=== PATIENT | male | born 1970 | race Caucasian/White ===

== ENCOUNTER 2020-02-11 18:18 | Emergency (ER) | payer BC ==
[2020-02-11] MEDS ORDERED: TETANUS,DIPHTHERIA,PERTUSSIS 1 EA SYG IM ONE (18:33)
[2020-02-11] MEDS ORDERED: AMOXICILLIN & POT CLAVULANATE 875 MG TAB PO ONE (18:33)
[2020-02-11] MEDS ORDERED: LIDOCAINE 1% W/ EPINEPHRINE 20 ML VIAL INJ ONE (18:33)
--- NOTE | 2020-02-11 18:36 | ED.PDOC ---
History of Present Illness - General Chief Complaint: Laceration Stated Complaint: laceration to right thigh Time Seen by Provider: 02/11/20 18:29 Source: patient, family Exam Limitations: no limitations - History of Present Illness Initial Comments: Pt presents to ED with right thigh laceration from chain saw that occured 30 minutes [employer]. States he was cutting a tree limb and the limb fell and hit the chain saw and saw bounced into his leg. he was wearing blue jeans at the time. Has laceration to abnterior mid right thigh with no active bleeding. Denies other injuries. Unknown last tetanus. Allergies/Adverse Reactions: Allergies NO KNOWN ALLERGY Allergy (Verified 02/11/20 18:32) Home Medications: Ambulatory Orders Amoxicillin & Pot Clavulanate [Augmentin Tab] 875 mg PO BID #20 tab 02/11/20 Review of Systems - Review of Systems Constitutional: Denies: chills, fever EENTM: Denies: blurred vision Respiratory: Denies: cough, short of breath Cardiology: Denies: chest pain, palpitations, syncope Gastrointestinal/Abdominal: Denies: abdominal pain Musculoskeletal: Denies: back pain, neck pain Skin: States: see HPI All other Systems: Reviewed and Negative Past Medical History (General) - Patient Medical History Hx Stroke: No Hx Congestive Heart Failure: No Hx Diabetes: No Surgical History: no surgical history - Vaccination History Hx Tetanus, Diphtheria Vaccination: - unknown Hx Influenza Vaccination: No - Social History Hx Tobacco Use: Yes Family Medical History - Family History Father Family History: Unknown Living Status: Unknown Physical Exam - Physical Exam General Appearance: Alert, Comfortable, No apparent distress Neck: non-tender, full range of motion Cardiovascular/Chest: regular rate, rhythm, no edema Respiratory: chest non-tender, lungs clear, normal breath sounds, no respiratory distress Gastrointestinal/Abdominal: non tender, soft Extremity: normal range of motion, no calf tenderness Neurologic: no motor/sensory deficits, alert, normal mood/affect Skin Exam: other - right thigh laceration as below Comments: There is a 5 cm laceration to the anterior right mid thigh with no active bleeding. There is loss of skin tissue in the middle of the wound. It does not violate the muscular fascia. There is no surrounding erythema. No muscular or bony tenderness to the right lower extremity. He has 5 out of 5 flexion and extension strength at the knee and ankle. He has 2+ distal pulses and sensation is intact to light touch. Progress - Progress Progress: 02/11/20 19:22 Pt presents with laceration to right thigh that does not involve muscle fascia. Irrigated extensively and sutured. There is a thin flap on inferior end with likely non viable tissue. Wound care instructions given. tetanus updated. Will start prophylactic antibiotics and he will f/u with PCP or ED in 48 hours for wound recheck. Suture removal in 12-14 days. Procedures - Laceration/Wound Repair Right Anterior Thigh Wound Length (cm): 5 Wound's Depth, Shape: irregular, flap Irrigated w/ Saline (cc's): 1,000 Anesthesia: Lidocaine w/ Epi Wound Debrided: minimal Wound Repaired With: sutures Suture Size/Type: 3:0 Number of Sutures: 8 Layer Closure?: No Departure - Departure Clinical Impression: Laceration of right thigh Qualifiers: Encounter type: initial encounter Qualified Code(s): S71.111A - Laceration without foreign body, right thigh, initial encounter Time of Disposition: 19:24 Disposition: Discharge to Home or Self Care Condition: Good Departure Forms: ED Discharge - Pt. Copy, Patient Portal Self Enrollment Instructions: DI for Laceration Repair, Laceration Repair With Stitches (DC) Diet: resume usual diet Activity: increase activity as tolerated Referrals: Deep Todd MD [Primary Care Provider] - 1-2 Days Prescriptions: Amoxicillin & Pot Clavulanate [Augmentin Tab] 875 mg PO BID #20 tab Home Medications: Ambulatory Orders Amoxicillin & Pot Clavulanate [Augmentin Tab] 875 mg PO BID #20 tab 02/11/20 Additional Instructions: Sutures will need to be removed in 12-14 days
[2020-02-11] MEDS ORDERED: NEOMYCIN-BACITRACIN-POLYMYXIN 0.9 GM UD TOP ONE (19:07)
[2020-02-11 20:04] VITALS: BP 146/78; TEMP 97.8; O2SAT 98
== END 2020-02-11 19:55 | disposition home or self-care (01) ==
LOC: ER 18:18
DX: S71.111A Laceration without foreign body, right thigh, initial encounter (principal); W29.3XXA Contact with powered garden and outdoor hand tools and machinery, initial encounter; Y93.89 Activity, other specified; Y92.9 Unspecified place or not applicable